=== PATIENT | female | born 1955 | race Hispanic/Latino ===

== ENCOUNTER 2022-04-13 17:56 | Emergency (ER) | payer MEDICARE ==
[~2022-04-13] VITALS: Ht 157.5 cm; Wt 120.2 kg
== END 2022-04-13 18:44 | disposition home or self-care (01) ==
LOC: ER 18:25
DX: N95.0 Postmenopausal bleeding (principal); I10 Essential (primary) hypertension; E11.40 Type 2 diabetes mellitus with diabetic neuropathy, unspecified; E78.5 Hyperlipidemia, unspecified; E03.9 Hypothyroidism, unspecified
CPT/HCPCS: 99282

== ENCOUNTER 2023-12-30 08:00 | Emergency (ER) | payer MEDICARE ==
[~2023-12-30] VITALS: Ht 157.5 cm; Wt 140.6 kg
[2023-12-30 08:49] VITALS: O2SAT 99
[2023-12-30] MEDS: FAMOTIDINE 20 MG/2 ML VIAL IV STA (08:49)
[2023-12-30] MEDS: SODIUM CHLORIDE 0.9% 500ML 500 ML IV ONE (08:49)
[2023-12-30] MEDS ORDERED: DIPHENHYDRAMINE HCL INJ 50 MG/ML VIAL ONE (08:49)
[2023-12-30] MEDS ORDERED: SODIUM CHLORIDE 0.9% 500ML 500 ML ONE (08:50)
[2023-12-30] MEDS ORDERED: FAMOTIDINE 20 MG/2 ML VIAL IV ONE (08:50)
[2023-12-30] MEDS: DIPHENHYDRAMINE HCL INJ 50 MG/ML VIAL IV ONE (08:51)
[2023-12-30] MEDS: METHYLPREDNISOLONE SOD SUCC 125 MG/2ML VIAL IV STA (09:21)
[2023-12-30] MEDS ORDERED: METHYLPREDNISOLONE SOD SUCC 125 MG/2ML VIAL ONE (09:22)
[2023-12-30] MEDS ORDERED: PREDNISONE20 MG PO (10:24)
== END 2023-12-30 10:37 | disposition home or self-care (01) ==
LOC: ER 08:09
DX: R21 Rash and other nonspecific skin eruption (principal); T78.40XA Allergy, unspecified, initial encounter; E11.40 Type 2 diabetes mellitus with diabetic neuropathy, unspecified; I10 Essential (primary) hypertension; E78.5 Hyperlipidemia, unspecified; E03.9 Hypothyroidism, unspecified
CPT/HCPCS: 99283; J1200; J2919; J7040